=== PATIENT | female | born 1945 | race Caucasian/White ===

== ENCOUNTER 2016-11-30 18:11 | Inpatient (IN) | payer OTHER ==
[~2016-11-30] VITALS: Ht 149.9 cm; Wt 76.2 kg
[~2016-11-30 18:11] MED LIST: APRESOLINE50 M1 PO; Cardura PO; Flexeril PO; Hydrodiuril,Oretic,E PO; LIDODERM 5% P1 PATCH TD; Lopressor PO; Lotensin PO; MOBIC7.5 MG PO; Micro-K,K-Tab,K-Dur, PO; Norvasc PO; PRAVACHOL20 MG PO; Senokot S,Pericolace PO; Tylenol Regular Stre PO; Vicodin,Norco 5/325 PO
[2016-11-30 19:09] LABS: HEMATOCRIT 35.2 % (36.0-46.0); MCH 26.4 PG (29.0-34.0); MCHC 33.2 G/DL (30.0-36.0); MCV 79.5 FL (83-99); MEAN PLAT.VOLUME 8.7 uM^3 (9.5-12.4); PLATELET COUNT 114 K/uL (156-360); RBC DIS.WIDTH-CV 13.9 % (11.8-14.6); RBC DIS.WIDTH-SD 39.9 % (39-53); RED BLOOD COUNT 4.43 M/uL (3.80-5.20)
[2016-11-30 19:12] LABS: ADD MIUA? YES; BILIRUBIN NEGATIVE; BLOOD NEGATIVE; COLOR YELLOW ((YELLOW)); GLUCOSE (STRIP) NEGATIVE; KETONES 5; LEUKOCYTES LARGE; NITRITE NEGATIVE; PROTEIN (STRIP) NEGATIVE; SPECIFIC GRAVITY 1.013 (1.000-1.030)
[2016-11-30 19:18] LABS: CHLORIDE 93 mEq/L (99-109); POTASSIUM 3.8 mEq/L (3.7-5.4); SODIUM 126 mEq/L (136-147)
[2016-11-30 19:20] LABS: GLUCOSE 112 mg/dL (70-99)
[2016-11-30 19:21] LABS: ANION GAP 7 MEQ/L (2-14)
[2016-11-30 19:24] LABS: GFR ESTIMATE (CALCULATED) > 59 mL/min/; UREA NITROGEN (BUN) 13 mg/dL (9-23)
[2016-11-30 19:57] LABS: RED BLOOD CELLS 0-5 /HPF (0-5); WHITE BLOOD CELLS 40-50 /HPF (0-5)
[2016-11-30 19:58] LABS: BACTERIA 1+ /HPF; EPITHELIAL CELLS RARE /HPF; MUCUS NONE SEEN /LPF; UCUL ADDED? NO
[2016-11-30] MEDS ORDERED: HYDROCHLOROTHIA25 MG PO (21:10)
[2016-11-30] MEDS ORDERED: APRESOLINE50 MG PO (21:10)
[2016-11-30] MEDS ORDERED: METOPROLOL TART50 MG PO (21:10)
[2016-11-30] MEDS ORDERED: METHYLDOPA250 MG PO (21:11)
[2016-11-30] MEDS ORDERED: RANITIDINE HCL150 MG PO (21:11)
[2016-11-30] MEDS ORDERED: BENAZEPRIL HCL40 MG PO (21:11)
[2016-11-30] MEDS ORDERED: ONE-A-DAY ESSE1 EAC1 PO (21:11)
[2016-12-01] VITALS (7 sets, daily range): BP systolic 113–211; BP diastolic 62–104
[2016-12-01 06:19] LABS: HEMATOCRIT 35.1 % (36.0-46.0); MCH 26.9 PG (29.0-34.0); MCHC 34.2 G/DL (30.0-36.0); MCV 78.7 FL (83-99); MEAN PLAT.VOLUME 8.7 uM^3 (9.5-12.4); PLATELET COUNT 131 K/uL (156-360); RBC DIS.WIDTH-CV 14.1 % (11.8-14.6); RED BLOOD COUNT 4.46 M/uL (3.80-5.20); WHITE BLOOD COUNT 5.7 K/uL (4.1-10.2)
[2016-12-01 06:40] LABS: ALKALINE PHOSPHATASE 74 IU/L (3-129); ANION GAP 10 MEQ/L (2-14); CHLORIDE 91 MEQ/L (99-109); GFR ESTIMATE (CALCULATED) > 59 mL/min/; GLUCOSE 138 mg/dL (70-99); POTASSIUM 3.6 MEQ/L (3.7-5.4); SAMPLE HEMOLYSIS CHECK 0; SAMPLE ICTERIC CHECK 0; SAMPLE LIPEMIA CHECK 0; SODIUM 125 MEQ/L (136-147); UREA NITROGEN (BUN) 12 mg/dL (9-23)
[2016-12-02 03:36] VITALS: BP 121/64
[2016-12-02 07:10] LABS: ANION GAP 7 MEQ/L (2-14); GFR ESTIMATE (CALCULATED) > 59 mL/min/; SAMPLE HEMOLYSIS CHECK 0; SAMPLE ICTERIC CHECK 0; SAMPLE LIPEMIA CHECK 0; SODIUM 129 MEQ/L (136-147); UREA NITROGEN (BUN) 12 mg/dL (9-23)
[2016-12-02 07:16] LABS: CHLORIDE 101 MEQ/L (99-109); GLUCOSE 93 mg/dL (70-99)
[2016-12-02 07:42] LABS: EOSINOPHIL (%) 1.9 % (0-5); EOSINOPHIL COUNT 0.1 K/uL (0-0.3); HEMATOCRIT 32.3 % (36.0-46.0); IMMATURE GRANULOCYTE (%) 0.5 % (0.0-0.7); INSTRUMENT ABS NEUTROPHIL CT 2.5 K/uL; LYMPHOCYTE COUNT 0.7 K/uL (1.0-2.8); MCH 27.1 PG (29.0-34.0); MCHC 33.1 G/DL (30.0-36.0); MCV 81.8 FL (83-99); MEAN PLAT.VOLUME 9.4 uM^3 (9.5-12.4); MONOCYTE (%) 13.2 % (3-12); MONOCYTE COUNT 0.5 K/uL (0-0.8); NEUTROPHIL (%) 65.9 % (45-76); NEUTROPHIL COUNT 2.5 K/uL (1.8-6.4); PLATELET COUNT 105 K/uL (156-360); RBC DIS.WIDTH-CV 14.4 % (11.8-14.6); RBC DIS.WIDTH-SD 42.3 % (39-53); RED BLOOD COUNT 3.95 M/uL (3.80-5.20); WHITE BLOOD COUNT 3.8 K/uL (4.1-10.2)
[2016-12-02 08:11] VITALS: BP 149/80
[2016-12-02 11:00] VITALS: BP 143/82
[2016-12-02 15:38] VITALS: BP 138/88
[2016-12-02 20:00] VITALS: BP 146/85
[2016-12-03] VITALS (7 sets, daily range): BP systolic 135–170; BP diastolic 61–88
[2016-12-03 06:15] LABS: EOSINOPHIL (%) 2.4 % (0-5); EOSINOPHIL COUNT 0.1 K/uL (0-0.3); HEMATOCRIT 29.9 % (36.0-46.0); IMMATURE GRANULOCYTE (%) 0.9 % (0.0-0.7); INSTRUMENT ABS NEUTROPHIL CT 2.1 K/uL; LYMPHOCYTE COUNT 0.6 K/uL (1.0-2.8); MCHC 33.4 G/DL (30.0-36.0); MCV 80.6 FL (83-99); MEAN PLAT.VOLUME 8.8 uM^3 (9.5-12.4); MONOCYTE (%) 13.1 % (3-12); MONOCYTE COUNT 0.4 K/uL (0-0.8); NEUTROPHIL (%) 65.1 % (45-76); NEUTROPHIL COUNT 2.1 K/uL (1.8-6.4); PLATELET COUNT 109 K/uL (156-360); RBC DIS.WIDTH-CV 14.2 % (11.8-14.6); RBC DIS.WIDTH-SD 41.9 % (39-53); RED BLOOD COUNT 3.71 M/uL (3.80-5.20); WHITE BLOOD COUNT 3.3 K/uL (4.1-10.2)
[2016-12-03 06:43] LABS: ANION GAP 5 MEQ/L (2-14); CHLORIDE 98 MEQ/L (99-109); GFR ESTIMATE (CALCULATED) > 59 mL/min/; GLUCOSE 101 mg/dL (70-99); SAMPLE HEMOLYSIS CHECK 0; SAMPLE ICTERIC CHECK 0; SAMPLE LIPEMIA CHECK 0; SODIUM 126 MEQ/L (136-147); UREA NITROGEN (BUN) 7 mg/dL (9-23)
[2016-12-03 06:47] LABS: POTASSIUM 3.9 MEQ/L (3.7-5.4)
[2016-12-04 06:20] LABS: EOSINOPHIL (%) 1.5 % (0-5); EOSINOPHIL COUNT 0.1 K/uL (0-0.3); HEMATOCRIT 31.4 % (36.0-46.0); IMMATURE GRANULOCYTE (%) 0.8 % (0.0-0.7); INSTRUMENT ABS NEUTROPHIL CT 2.5 K/uL; LYMPHOCYTE COUNT 0.7 K/uL (1.0-2.8); MCH 27.8 PG (29.0-34.0); MCHC 34.4 G/DL (30.0-36.0); MCV 80.9 FL (83-99); MEAN PLAT.VOLUME 8.7 uM^3 (9.5-12.4); MONOCYTE (%) 14.9 % (3-12); MONOCYTE COUNT 0.6 K/uL (0-0.8); NEUTROPHIL (%) 65.1 % (45-76); NEUTROPHIL COUNT 2.5 K/uL (1.8-6.4); PLATELET COUNT 132 K/uL (156-360); RBC DIS.WIDTH-CV 14.6 % (11.8-14.6); RBC DIS.WIDTH-SD 42.9 % (39-53); RED BLOOD COUNT 3.88 M/uL (3.80-5.20); WHITE BLOOD COUNT 3.9 K/uL (4.1-10.2)
[2016-12-04 07:23] VITALS: BP 166/90
[2016-12-04 08:09] LABS: ANION GAP 7 MEQ/L (2-14); CHLORIDE 105 MEQ/L (99-109); GFR ESTIMATE (CALCULATED) > 59 mL/min/; GLUCOSE 111 mg/dL (70-99); SAMPLE HEMOLYSIS CHECK 0; SAMPLE ICTERIC CHECK 0; SAMPLE LIPEMIA CHECK 0; UREA NITROGEN (BUN) 7 mg/dL (9-23)
[2016-12-04 08:11] LABS: SODIUM 133 MEQ/L (136-147)
[2016-12-04 15:19] VITALS: BP 142/70
[2016-12-04 23:58] VITALS: BP 136/63
[2016-12-05 06:33] LABS: EOSINOPHIL COUNT 0.1 K/uL (0-0.3); HEMATOCRIT 31.6 % (36.0-46.0); IMMATURE GRANULOCYTE (%) 0.5 % (0.0-0.7); INSTRUMENT ABS NEUTROPHIL CT 2.6 K/uL; LYMPHOCYTE COUNT 0.8 K/uL (1.0-2.8); MCH 26.1 PG (29.0-34.0); MCHC 32.3 G/DL (30.0-36.0); MCV 80.8 FL (83-99); MEAN PLAT.VOLUME 9.1 uM^3 (9.5-12.4); MONOCYTE (%) 14.1 % (3-12); MONOCYTE COUNT 0.6 K/uL (0-0.8); NEUTROPHIL (%) 64.1 % (45-76); NEUTROPHIL COUNT 2.6 K/uL (1.8-6.4); PLATELET COUNT 139 K/uL (156-360); RBC DIS.WIDTH-CV 14.8 % (11.8-14.6); RBC DIS.WIDTH-SD 43.9 % (39-53); RED BLOOD COUNT 3.91 M/uL (3.80-5.20)
[2016-12-05 06:54] LABS: ANION GAP 7 MEQ/L (2-14); CHLORIDE 102 MEQ/L (99-109); GFR ESTIMATE (CALCULATED) > 59 mL/min/; GLUCOSE 106 mg/dL (70-99); POTASSIUM 4.2 MEQ/L (3.7-5.4); SAMPLE HEMOLYSIS CHECK 0; SAMPLE ICTERIC CHECK 0; SAMPLE LIPEMIA CHECK 0; SODIUM 132 MEQ/L (136-147); UREA NITROGEN (BUN) 9 mg/dL (9-23)
[2016-12-05 08:07] VITALS: BP 148/76
[2016-12-05 15:51] VITALS: BP 159/78
[2016-12-06 00:05] VITALS: BP 126/65
[2016-12-06 08:14] VITALS: BP 128/67
[2016-12-06 08:16] VITALS: BP 128/67
[2016-12-06 08:27] LABS: EOSINOPHIL COUNT 0.1 K/uL (0-0.3); IMMATURE GRANULOCYTE (%) 0.5 % (0.0-0.7); LYMPHOCYTE COUNT 0.6 K/uL (1.0-2.8); MCH 27.2 PG (29.0-34.0); MCHC 33.5 G/DL (30.0-36.0); MCV 81.2 FL (83-99); MEAN PLAT.VOLUME 9.2 uM^3 (9.5-12.4); MONOCYTE (%) 12.8 % (3-12); MONOCYTE COUNT 0.6 K/uL (0-0.8); NEUTROPHIL (%) 68.3 % (45-76); PLATELET COUNT 155 K/uL (156-360); RBC DIS.WIDTH-CV 15.1 % (11.8-14.6); RBC DIS.WIDTH-SD 43.9 % (39-53); RED BLOOD COUNT 3.82 M/uL (3.80-5.20); WHITE BLOOD COUNT 4.4 K/uL (4.1-10.2)
[2016-12-06 08:51] LABS: ANION GAP 9 MEQ/L (2-14); CHLORIDE 98 MEQ/L (99-109); GFR ESTIMATE (CALCULATED) > 59 mL/min/; GLUCOSE 114 mg/dL (70-99); POTASSIUM 4.1 MEQ/L (3.7-5.4); SAMPLE HEMOLYSIS CHECK 0; SAMPLE ICTERIC CHECK 0; SAMPLE LIPEMIA CHECK 0; SODIUM 131 MEQ/L (136-147); UREA NITROGEN (BUN) 10 mg/dL (9-23)
[2016-12-06] MEDS ORDERED: FUROSEMIDE20 MG PO (11:47)
[2016-12-06] MEDS ORDERED: SODIUM CHLORIDE1 G1 PO (11:47)
[2016-12-06] MEDS ORDERED: BACTRIM,SEPT1 TABLET PO (11:50)
[2016-12-06] MEDS ORDERED: APRESOLINE50 MG PO (11:55)
[2016-12-06] MEDS ORDERED: AMLODIPINE BESYL5 MG PO (11:55)
[2016-12-06 12:00] VITALS: BP 143/75
== END 2016-12-06 16:09 | disposition home health service (06) | DRG 644 ==
LOC: EME 18:11 → EDOF 23:14 → 5SOUTH 23:14 → EDOF 12-01 00:46 → 5SOUTH 12-01 00:48
PROVIDERS: Emergency Medicine; Internal Medicine; Internal Medicine Nephrology
DX: E22.2 Syndrome of inappropriate secretion of antidiuretic hormone (principal); C25.9 Malignant neoplasm of pancreas, unspecified; C78.00 Secondary malignant neoplasm of unspecified lung; N39.0 Urinary tract infection, site not specified; B96.20 Unspecified Escherichia coli [E. coli] as the cause of diseases classified elsewhere; I16.0 Hypertensive urgency; I10 Essential (primary) hypertension; I80.8 Phlebitis and thrombophlebitis of other sites; R18.8 Other ascites; I25.10 Atherosclerotic heart disease of native coronary artery without angina pectoris; D53.9 Nutritional anemia, unspecified; J45.909 Unspecified asthma, uncomplicated; K21.9 Gastro-esophageal reflux disease without esophagitis; I65.29 Occlusion and stenosis of unspecified carotid artery; K57.90 Diverticulosis of intestine, part unspecified, without perforation or abscess without bleeding; M54.9 Dorsalgia, unspecified; M19.90 Unspecified osteoarthritis, unspecified site; Z85.07 Personal history of malignant neoplasm of pancreas; Z86.73 Personal history of transient ischemic attack (TIA), and cerebral infarction without residual deficits; Z90.710 Acquired absence of both cervix and uterus
CPT/HCPCS: 36415; 74176; 80048; 80053; 81003; 82533 91; 83605; 83930; 83935; 84300; 84443; 85025; 85027; 85610; 85730; 87040; 87077; 87086; 87186; 93971; 99202; 99281; 99285; J0360; J0696; J1644; J2405; J7030; J7050; S0028

== ENCOUNTER → 2016-12-13 | Outpatient (CLI) | payer OTHER ==
[~2016-12-13] VITALS: Ht 151.6 cm; Wt 68.0 kg
[~2016-12-13] MED LIST changes: +AMLODIPINE BESYL5 MG PO; +APRESOLINE50 MG PO; +BACTRIM,SEPT1 TABLET PO; +BENAZEPRIL HCL40 MG PO; +FUROSEMIDE20 MG PO; +HYDROCHLOROTHIA25 MG PO; +METHYLDOPA250 MG PO; +METOPROLOL TART50 MG PO; +ONE-A-DAY ESSE1 EAC1 PO; +RANITIDINE HCL150 MG PO; +SODIUM CHLORIDE1 G1 PO
== END | disposition home or self-care (01) ==
LOC: OPR 08:38 → EDSTATUS 09:00
DX: C78.02 Secondary malignant neoplasm of left lung (principal); C25.9 Malignant neoplasm of pancreas, unspecified; I10 Essential (primary) hypertension; J45.909 Unspecified asthma, uncomplicated; K21.9 Gastro-esophageal reflux disease without esophagitis; G89.3 Neoplasm related pain (acute) (chronic)
CPT/HCPCS: 71010; 77012; 88305; 88341 TC; 88342 TC; J3010

== ENCOUNTER 2016-12-26 18:52 | Inpatient (IN) | payer OTHER ==
[~2016-12-26] VITALS: Ht 149.9 cm; Wt 68.7 kg
[2016-12-26 19:47] LABS: CHLORIDE 89 mEq/L (99-109); POTASSIUM 3.5 mEq/L (3.7-5.4); SODIUM 123 mEq/L (136-147)
[2016-12-26 19:49] LABS: MCH 26.1 PG (29.0-34.0); MCHC 33.8 G/DL (30.0-36.0); MCV 77.3 FL (83-99); MEAN PLAT.VOLUME 8.7 uM^3 (9.5-12.4); PLATELET COUNT 171 K/uL (156-360); RBC DIS.WIDTH-CV 14.5 % (11.8-14.6); RBC DIS.WIDTH-SD 40.6 % (39-53); WHITE BLOOD COUNT 5.1 K/uL (4.1-10.2)
[2016-12-26 19:50] LABS: GLUCOSE 108 mg/dL (70-99)
[2016-12-26 19:51] LABS: ANION GAP 13 MEQ/L (2-14)
[2016-12-26 19:52] LABS: TOTAL BILIRUBIN 1.3 mg/dL (0.0-1.0)
[2016-12-26 19:53] LABS: ALKALINE PHOSPHATASE 70 IU/L (3-129); GFR ESTIMATE (CALCULATED) > 59 mL/min/
[2016-12-26 19:54] LABS: UREA NITROGEN (BUN) 14 mg/dL (9-23)
[2016-12-26 20:40] LABS: ADD MIUA? YES; BILIRUBIN NEGATIVE; BLOOD NEGATIVE; COLOR YELLOW ((YELLOW)); GLUCOSE (STRIP) NEGATIVE; KETONES 5; LEUKOCYTES SMALL; NITRITE POSITIVE; PROTEIN (STRIP) NEGATIVE; SPECIFIC GRAVITY 1.009 (1.000-1.030); UROBILINOGEN 0.2 MG/DL (0.2-1.0)
[2016-12-26 21:08] LABS: EPITHELIAL CELLS RARE /HPF; MUCUS NONE SEEN /LPF; RED BLOOD CELLS 0-5 /HPF (0-5)
[2016-12-26 21:09] LABS: BACTERIA 1+ /HPF; CASTS NONE SEEN /LPF; CRYSTALS NONE SEEN; UCUL ADDED? NO
[2016-12-26] MEDS ORDERED: APRESOLINE50 MG PO (22:25)
[2016-12-26] MEDS ORDERED: NORVASC5 MG PO (22:27)
[2016-12-26] MEDS ORDERED: PROMETHAZINE12.5 M1 PO (22:29)
[2016-12-26 23:44] VITALS: BP 187/82
[2016-12-27 03:47] VITALS: BP 128/65
[2016-12-27 06:28] LABS: ALKALINE PHOSPHATASE 53 IU/L (3-129); ANION GAP 7 MEQ/L (2-14); CHLORIDE 98 MEQ/L (99-109); GFR ESTIMATE (CALCULATED) > 59 mL/min/; GLUCOSE 95 mg/dL (70-99); MAGNESIUM 1.7 mg/dl (1.3-2.7); POTASSIUM 3.7 MEQ/L (3.7-5.4); SAMPLE HEMOLYSIS CHECK 0; SAMPLE ICTERIC CHECK 0; SAMPLE LIPEMIA CHECK 0; SODIUM 129 MEQ/L (136-147); TOTAL BILIRUBIN 0.8 MG/DL (0.0-1.0); UREA NITROGEN (BUN) 10 mg/dL (9-23)
[2016-12-27 07:22] VITALS: BP 115/61
[2016-12-27 11:10] VITALS: BP 134/66
[2016-12-27 15:08] VITALS: BP 136/60
[2016-12-27 19:30] VITALS: BP 120/58
[2016-12-27 23:28] VITALS: BP 129/60
[2016-12-28 03:56] VITALS: BP 145/72
[2016-12-28 08:12] VITALS: BP 117/79
[2016-12-28 10:20] LABS: ANION GAP 7 MEQ/L (2-14); CHLORIDE 100 MEQ/L (99-109); POTASSIUM 3.7 MEQ/L (3.7-5.4); SAMPLE HEMOLYSIS CHECK 0; SAMPLE ICTERIC CHECK 0; SAMPLE LIPEMIA CHECK 0; SODIUM 130 MEQ/L (136-147)
[2016-12-28 10:25] LABS: GFR ESTIMATE (CALCULATED) > 59 mL/min/; GLUCOSE 137 mg/dL (70-99); UREA NITROGEN (BUN) 10 mg/dL (9-23)
[2016-12-28 12:13] VITALS: BP 146/65
[2016-12-28] MEDS ORDERED: PROMETHAZINE12.5 M1 PO (14:31)
[2016-12-28] MEDS ORDERED: BACTRIM,SEPT1 TABLET PO (14:32)
== END 2016-12-28 16:45 | disposition home health service (06) | DRG 644 ==
LOC: EME 18:52 → EDOF 21:59 → 5SOUTH 21:59 → ENRESERV 22:10 → 5SOUTH 23:31
PROVIDERS: Internal Medicine; Nurse Practitioner Family; Physician Assistant Medical
DX: E22.2 Syndrome of inappropriate secretion of antidiuretic hormone (principal); C78.00 Secondary malignant neoplasm of unspecified lung; C25.9 Malignant neoplasm of pancreas, unspecified; N30.00 Acute cystitis without hematuria; B96.20 Unspecified Escherichia coli [E. coli] as the cause of diseases classified elsewhere; I10 Essential (primary) hypertension; K21.9 Gastro-esophageal reflux disease without esophagitis; Z91.19 Patient's noncompliance with other medical treatment and regimen; I25.2 Old myocardial infarction; E86.0 Dehydration; Z86.73 Personal history of transient ischemic attack (TIA), and cerebral infarction without residual deficits; I25.10 Atherosclerotic heart disease of native coronary artery without angina pectoris
CPT/HCPCS: 74177; 80048; 80053; 81003; 83735; 84100; 85027; 99281; 99285; J0696; J1644; J2405; J2765; J7030; J7050; S0028

== ENCOUNTER 2017-01-14 10:49 | Emergency (ER) | payer OTHER ==
[~2017-01-14] VITALS: Ht 149.9 cm; Wt 78.0 kg
[~2017-01-14 10:49] MED LIST changes: +NORVASC5 MG PO; +PROMETHAZINE12.5 M1 PO
[2017-01-14 12:40] LABS: EOSINOPHIL (%) 1.1 % (0-5); EOSINOPHIL COUNT 0.1 K/uL (0-0.3); IMMATURE GRANULOCYTE (%) 0.7 % (0.0-0.7); LYMPHOCYTE COUNT 0.4 K/uL (1.0-2.8); MCH 26.2 PG (29.0-34.0); MCV 79.4 FL (83-99); MONOCYTE (%) 1.1 % (3-12); MONOCYTE COUNT 0.1 K/uL (0-0.8); NEUTROPHIL (%) 88.4 % (45-76); RBC DIS.WIDTH-CV 14.7 % (11.8-14.6); RBC DIS.WIDTH-SD 42.7 % (39-53); RED BLOOD COUNT 3.78 M/uL (3.80-5.20); WHITE BLOOD COUNT 4.6 K/uL (4.1-10.2)
[2017-01-14 12:53] LABS: CHLORIDE 95 mEq/L (99-109); POTASSIUM 3.4 mEq/L (3.7-5.4); SODIUM 128 mEq/L (136-147)
[2017-01-14 12:55] LABS: ADD MIUA? NO; BILIRUBIN NEGATIVE; BLOOD NEGATIVE; COLOR YELLOW ((YELLOW)); GLUCOSE (STRIP) NEGATIVE; KETONES NEGATIVE; LEUKOCYTES NEGATIVE; NITRITE NEGATIVE; PROTEIN (STRIP) 30; SPECIFIC GRAVITY 1.015 (1.000-1.030); UCUL ADDED? NO
[2017-01-14 12:55] LABS: GLUCOSE 120 mg/dL (70-99)
[2017-01-14 12:56] LABS: ANION GAP 7 MEQ/L (2-14)
[2017-01-14 12:57] LABS: TOTAL BILIRUBIN 1.5 mg/dL (0.0-1.0)
[2017-01-14 12:58] LABS: ALKALINE PHOSPHATASE 70 IU/L (3-129)
[2017-01-14 12:58] LABS: TROP-I INTERPRETATION NEGATIVE; TROPONIN-I 0.01 ng/mL (0.0-0.30)
[2017-01-14 12:59] LABS: GFR ESTIMATE (CALCULATED) > 59 mL/min/
[2017-01-14 13:00] LABS: UREA NITROGEN (BUN) 15 mg/dL (9-23)
[2017-01-14 13:02] LABS: LIPASE 6 U/L (1.0-51.0)
[2017-01-14 13:14] LABS: MEAN PLAT.VOLUME 9.8 uM^3 (9.5-12.4); PLAT.SUFFICIENCY DECREASED; PLATELET COUNT 101 K/uL (156-360)
[2017-01-14 22:05] VITALS: BP 152/68
== END 2017-01-14 22:21 | disposition home or self-care (01) ==
LOC: EME 10:49
PROVIDERS: Emergency Medicine
DX: C25.9 Malignant neoplasm of pancreas, unspecified (principal); C78.00 Secondary malignant neoplasm of unspecified lung; R11.2 Nausea with vomiting, unspecified; R50.9 Fever, unspecified; R18.8 Other ascites; J90 Pleural effusion, not elsewhere classified; R05 Cough; I10 Essential (primary) hypertension; Z90.49 Acquired absence of other specified parts of digestive tract
CPT/HCPCS: 71020; 74177; 80053; 81003; 83605; 83690; 84484; 85025; 87040; 93005; 99281; 99285; J2405; J2765; J7030

== ENCOUNTER 2017-03-13 16:54 | Inpatient (IN) | payer OTHER ==
[~2017-03-13] VITALS: Ht 149.9 cm; Wt 69.0 kg
[~2017-03-13 16:54] MED LIST changes: +NYSTATIN100000 UN1 PO
[2017-03-13 18:09] LABS: CHLORIDE 101 mEq/L (99-109); POTASSIUM 4.5 mEq/L (3.7-5.4); SODIUM 133 mEq/L (136-147)
[2017-03-13 18:11] LABS: GLUCOSE 95 mg/dL (70-99)
[2017-03-13 18:12] LABS: ANION GAP 8 MEQ/L (2-14)
[2017-03-13 18:13] LABS: TOTAL BILIRUBIN 1.5 mg/dL (0.0-1.0)
[2017-03-13 18:15] LABS: ALKALINE PHOSPHATASE 102 IU/L (3-129); GFR ESTIMATE (CALCULATED) > 59 mL/min/
[2017-03-13 18:16] LABS: UREA NITROGEN (BUN) 26 mg/dL (9-23)
[2017-03-13 18:20] LABS: TROP-I INTERPRETATION NEGATIVE; TROPONIN-I 0.04 ng/mL (0.0-0.30)
[2017-03-13 18:42] LABS: HEMATOCRIT 20.5 % (36.0-46.0); MCH 27.3 PG (29.0-34.0); MCHC 33.7 G/DL (30.0-36.0); MEAN PLAT.VOLUME 8.6 uM^3 (9.5-12.4); RBC DIS.WIDTH-CV 20.7 % (11.8-14.6); RBC DIS.WIDTH-SD 55.9 % (39-53); RED BLOOD COUNT 2.53 M/uL (3.80-5.20)
[2017-03-13 18:43] LABS: PLATELET COUNT 80 K/uL (156-360); WHITE BLOOD COUNT 0.9 K/uL (4.1-10.2)
[2017-03-13 19:02] LABS: PLAT.SUFFICIENCY DECREASED
[2017-03-13 19:06] LABS: ABS NEUTROPHIL COUNT 0.6; ANISOCYTOSIS 1+; ATYPICAL LYMPHOCYTE 5.9 %; BAND NEUTROPHILS 1.4 % (0-8.0); BURR CELLS 2+; EOSINOPHIL ABS CT 0; EOSINOPHILS 0.9 % (0-5.0); HYPOCHROMASIA 1+; LYMPHOCYTES 22.5 % (15.0-45.0); MACROCYTES 1+; OVALOCYTES 1+; POIKILOCYTOSIS 2+; SCHISTOCYTES 1+
[2017-03-13] MEDS ORDERED: LASIX20 MG PO (20:44)
[2017-03-13] MEDS ORDERED: K-DUR20 MEQ PO (20:44)
[2017-03-13] MEDS ORDERED: REGLAN10 MG PO (20:45)
[2017-03-13] MEDS ORDERED: ZUPLENZ4 MG PO (20:45)
[2017-03-13] MEDS ORDERED: PRILOSEC20 MG PO (20:46)
[2017-03-13 21:08] VITALS: BP 112/67
[2017-03-13 21:15] VITALS: BP 112/66
[2017-03-13 21:30] VITALS: BP 104/67
[2017-03-13 22:45] VITALS: BP 125/79
[2017-03-14] VITALS (10 sets, daily range): BP systolic 118–145; BP diastolic 70–83
[2017-03-14 06:50] LABS: HEMATOCRIT 28.4 % (36.0-46.0); MCH 26.4 PG (29.0-34.0); MCV 82.3 FL (83-99); MEAN PLAT.VOLUME 8.3 uM^3 (9.5-12.4); PLATELET COUNT 74 K/uL (156-360); RBC DIS.WIDTH-CV 19.1 % (11.8-14.6); RBC DIS.WIDTH-SD 52.7 % (39-53)
[2017-03-14 06:59] LABS: RED BLOOD COUNT 3.45 M/uL (3.80-5.20)
[2017-03-14 07:10] LABS: ANION GAP 5 MEQ/L (2-14); CHLORIDE 101 MEQ/L (99-109); GFR ESTIMATE (CALCULATED) > 59 mL/min/; GLUCOSE 90 mg/dL (70-99); POTASSIUM 4.4 MEQ/L (3.7-5.4); SAMPLE HEMOLYSIS CHECK 0; SAMPLE ICTERIC CHECK 0; SAMPLE LIPEMIA CHECK 0; SODIUM 131 MEQ/L (136-147); UREA NITROGEN (BUN) 24 mg/dL (9-23)
[2017-03-14 12:58] LABS: HEMATOCRIT 29.7 % (36.0-46.0); MCV 80.9 FL (83-99)
[2017-03-15 06:53] LABS: ANION GAP 9 MEQ/L (2-14); CHLORIDE 102 MEQ/L (99-109); GFR ESTIMATE (CALCULATED) > 59 mL/min/; GLUCOSE 88 mg/dL (70-99); SAMPLE HEMOLYSIS CHECK 0; SAMPLE ICTERIC CHECK 0; SAMPLE LIPEMIA CHECK 0; SODIUM 135 MEQ/L (136-147); UREA NITROGEN (BUN) 19 mg/dL (9-23)
[2017-03-15 06:55] LABS: HEMATOCRIT 29.7 % (36.0-46.0); MCH 26.9 PG (29.0-34.0); MCHC 32.7 G/DL (30.0-36.0); MCV 82.3 FL (83-99); MEAN PLAT.VOLUME 8.8 uM^3 (9.5-12.4); PLATELET COUNT 57 K/uL (156-360); RBC DIS.WIDTH-CV 19.5 % (11.8-14.6); RBC DIS.WIDTH-SD 53.6 % (39-53); RED BLOOD COUNT 3.61 M/uL (3.80-5.20); WHITE BLOOD COUNT 2.5 K/uL (4.1-10.2)
[2017-03-15 08:04] VITALS: BP 120/75
[2017-03-15 11:27] VITALS: BP 124/73
[2017-03-15 15:57] VITALS: BP 117/71
[2017-03-16 00:01] VITALS: BP 126/76
[2017-03-16 07:50] VITALS: BP 106/65
[2017-03-16 07:52] VITALS: BP 134/69
[2017-03-16 08:55] LABS: MCH 26.8 PG (29.0-34.0); MCHC 32.1 G/DL (30.0-36.0); MCV 83.5 FL (83-99); MEAN PLAT.VOLUME 8.8 uM^3 (9.5-12.4); NRBC (%) 0.4 /100 WBC (0-0); PLATELET COUNT 58 K/uL (156-360); RBC DIS.WIDTH-SD 55.8 % (39-53); RED BLOOD COUNT 4.07 M/uL (3.80-5.20); WHITE BLOOD COUNT 5.3 K/uL (4.1-10.2)
[2017-03-16 11:11] VITALS: BP 136/74
[2017-03-16 12:45] LABS: POINT-OF-CARE METER ID UU14188625
[2017-03-17 00:21] VITALS: BP 106/65
[2017-03-17 06:53] LABS: HEMATOCRIT 32.6 % (36.0-46.0); MCH 26.2 PG (29.0-34.0); MCHC 31.3 G/DL (30.0-36.0); MCV 83.8 FL (83-99); MEAN PLAT.VOLUME 10.2 uM^3 (9.5-12.4); NRBC (%) 0.4 /100 WBC (0-0); PLATELET COUNT 67 K/uL (156-360); RBC DIS.WIDTH-CV 20.1 % (11.8-14.6); RBC DIS.WIDTH-SD 57.1 % (39-53); RED BLOOD COUNT 3.89 M/uL (3.80-5.20); WHITE BLOOD COUNT 5.3 K/uL (4.1-10.2)
[2017-03-17 07:02] VITALS: BP 106/65
[2017-03-17 07:17] LABS: ANION GAP 10 MEQ/L (2-14); CHLORIDE 102 MEQ/L (99-109); GFR ESTIMATE (CALCULATED) 58 mL/min/; GLUCOSE 85 mg/dL (70-99); POTASSIUM 3.8 MEQ/L (3.7-5.4); SAMPLE HEMOLYSIS CHECK 0; SAMPLE ICTERIC CHECK 0; SAMPLE LIPEMIA CHECK 0; SODIUM 136 MEQ/L (136-147); UREA NITROGEN (BUN) 21 mg/dL (9-23)
[2017-03-17 15:00] VITALS: BP 130/78
[2017-03-17 23:35] VITALS: BP 125/66
[2017-03-18 07:07] VITALS: BP 131/72
[2017-03-18 14:30] LABS: Heparin Induced Plt Ab Negative (Negative)
[2017-03-18 15:05] VITALS: BP 135/69
[2017-03-19 00:50] VITALS: BP 113/69
[2017-03-19 08:00] VITALS: BP 120/72
[2017-03-19 09:53] LABS: UFH SRA Result Negative (Negative)
[2017-03-19 15:54] VITALS: BP 115/78
[2017-03-19 23:41] VITALS: BP 102/67
[2017-03-20 07:38] VITALS: BP 110/63
[2017-03-20 13:18] LABS: HEMATOCRIT 31.9 % (36.0-46.0); MCH 27.7 PG (29.0-34.0); MCHC 32.9 G/DL (30.0-36.0); MCV 84.2 FL (83-99); MEAN PLAT.VOLUME 8.9 uM^3 (9.5-12.4); NRBC (%) 0.2 /100 WBC (0-0); RBC DIS.WIDTH-CV 21.1 % (11.8-14.6); RBC DIS.WIDTH-SD 61.5 % (39-53); RED BLOOD COUNT 3.79 M/uL (3.80-5.20); WHITE BLOOD COUNT 11.6 K/uL (4.1-10.2)
[2017-03-20 13:20] LABS: EOSINOPHIL (%) 0.2 % (0-5); IMMATURE GRANULOCYTE (%) 2.8 % (0.0-0.7); IMMATURE GRANULOCYTE COUNT 0.3 K/uL; INSTRUMENT ABS NEUTROPHIL CT 9.5 K/uL; LYMPHOCYTE COUNT 0.7 K/uL (1.0-2.8); MONOCYTE (%) 8.4 % (3-12); NEUTROPHIL (%) 82.1 % (45-76); NEUTROPHIL COUNT 9.5 K/uL (1.8-6.4); PLATELET COUNT 201 K/uL (156-360)
[2017-03-20 13:40] LABS: ALKALINE PHOSPHATASE 139 IU/L (3-129); ANION GAP 12 MEQ/L (2-14); CHLORIDE 106 MEQ/L (99-109); GFR ESTIMATE (CALCULATED) 47 mL/min/; GLUCOSE 85 mg/dL (70-99); POTASSIUM 3.4 MEQ/L (3.7-5.4); SAMPLE HEMOLYSIS CHECK 0; SAMPLE ICTERIC CHECK 0; SAMPLE LIPEMIA CHECK 0; SODIUM 141 MEQ/L (136-147); TOTAL BILIRUBIN 1.5 MG/DL (0.0-1.0); UREA NITROGEN (BUN) 26 mg/dL (9-23)
[2017-03-20 16:07] VITALS: BP 115/69
[2017-03-20 23:34] VITALS: BP 107/64
[2017-03-21 07:11] VITALS: BP 123/70
[2017-03-21 15:10] VITALS: BP 112/62
[2017-03-21 23:57] VITALS: BP 102/60
[2017-03-22 07:56] VITALS: BP 110/62
[2017-03-22] MEDS ORDERED: CIPROFLOXACIN500 M1 PO (09:44)
[2017-03-22] MEDS ORDERED: DOCUSATE SODIU100 MG PO (09:45)
[2017-03-22] MEDS ORDERED: POLYETHYLENE GL17 GM PO (09:46)
[2017-03-22] MEDS ORDERED: TRAMADOL HCL50 MG PO (09:47)
[2017-03-22] MEDS ORDERED: K-DUR20 MEQ PO (09:47)
[2017-03-22] MEDS ORDERED: MORPHINE SULFAT15 MG PO (09:47)
[2017-03-22 10:58] VITALS: BP 104/56
== END 2017-03-22 15:03 | DRG 809 ==
LOC: EME 16:54 → EDOF 22:36 → 5SOUTH 22:36 → ENRESERV 22:37 → 5SOUTH 03-14 00:08
PROVIDERS: Emergency Medicine; Internal Medicine; Internal Medicine Medical Oncology; Physician Assistant Medical
PROC: 30233N1 Transfusion of Nonautologous Red Blood Cells into Peripheral Vein, Percutaneous Approach (ICD-10-PCS; principal; 2017-03-13)
DX: D61.810 Antineoplastic chemotherapy induced pancytopenia (principal); T45.1X5A Adverse effect of antineoplastic and immunosuppressive drugs, initial encounter; M54.9 Dorsalgia, unspecified; C78.00 Secondary malignant neoplasm of unspecified lung; G89.29 Other chronic pain; I25.10 Atherosclerotic heart disease of native coronary artery without angina pectoris; C25.9 Malignant neoplasm of pancreas, unspecified; R18.0 Malignant ascites; K57.32 Diverticulitis of large intestine without perforation or abscess without bleeding; K59.00 Constipation, unspecified; C78.6 Secondary malignant neoplasm of retroperitoneum and peritoneum; K21.9 Gastro-esophageal reflux disease without esophagitis; I10 Essential (primary) hypertension; R47.02 Dysphasia; R13.10 Dysphagia, unspecified; E22.2 Syndrome of inappropriate secretion of antidiuretic hormone; D50.0 Iron deficiency anemia secondary to blood loss (chronic); R26.2 Difficulty in walking, not elsewhere classified; Z90.710 Acquired absence of both cervix and uterus; Z90.49 Acquired absence of other specified parts of digestive tract; Z86.73 Personal history of transient ischemic attack (TIA), and cerebral infarction without residual deficits; Z82.49 Family history of ischemic heart disease and other diseases of the circulatory system; Z68.30 Body mass index [BMI] 30.0-30.9, adult; D70.9 Neutropenia, unspecified; E87.6 Hypokalemia; Z66 Do not resuscitate; Z51.5 Encounter for palliative care; Z79.899 Other long term (current) drug therapy
CPT/HCPCS: 36415; 71010; 71020; 74000; 74177; 80048; 80053; 82948; 84484; 85014; 85018; 85025; 85027; 86022 90; 86850; 86900; 86901; 86920; 93005; 94799; 97530 GP; 99281; 99285; J1650; J2270; J2405; J2543; J7050; P9016; Q0169

== ENCOUNTER 2017-03-27 03:29 | Inpatient (IN) | payer OTHER ==
[~2017-03-27] VITALS: Ht 160 cm; Wt 68.7 kg
[~2017-03-27 03:29] MED LIST changes: +CIPROFLOXACIN500 M1 PO; +DOCUSATE SODIU100 MG PO; +K-DUR20 MEQ PO; +LASIX20 MG PO; +MORPHINE SULFAT15 MG PO; +POLYETHYLENE GL17 GM PO; +PRILOSEC20 MG PO; +REGLAN10 MG PO; +TRAMADOL HCL50 MG PO; +ZUPLENZ4 MG PO
[2017-03-27 04:08] LABS: HEMATOCRIT 29.6 % (36.0-46.0); MCHC 32.4 G/DL (30.0-36.0); MCV 83.1 FL (83-99); MEAN PLAT.VOLUME 8.8 uM^3 (9.5-12.4); NRBC (%) 0.6 /100 WBC (0-0); PLATELET COUNT 241 K/uL (156-360); RBC DIS.WIDTH-CV 22.7 % (11.8-14.6); RED BLOOD COUNT 3.56 M/uL (3.80-5.20); WHITE BLOOD COUNT 8.6 K/uL (4.1-10.2)
[2017-03-27 04:19] LABS: CHLORIDE 101 mEq/L (99-109); POTASSIUM 4.3 mEq/L (3.7-5.4); SODIUM 141 mEq/L (136-147)
[2017-03-27 04:21] LABS: GLUCOSE 103 mg/dL (70-99)
[2017-03-27 04:22] LABS: ANION GAP 21 MEQ/L (2-14)
[2017-03-27 04:23] LABS: TOTAL BILIRUBIN 1.1 mg/dL (0.0-1.0)
[2017-03-27 04:24] LABS: ALKALINE PHOSPHATASE 150 IU/L (3-129)
[2017-03-27 04:26] LABS: UREA NITROGEN (BUN) 75 mg/dL (9-23)
[2017-03-27 04:29] LABS: TROP-I INTERPRETATION NEGATIVE; TROPONIN-I 0.03 ng/mL (0.0-0.30)
[2017-03-27 04:34] LABS: GFR ESTIMATE (CALCULATED) 7 mL/min/
[2017-03-27 08:15] VITALS: BP 78/58
[2017-03-27] MEDS ORDERED: Ranitidine IV (10:34)
[2017-03-27] MEDS ORDERED: MORPHINE SULFAT15 MG PO (10:36)
[2017-03-27] MEDS ORDERED: TRAMADOL HCL50 MG PO (10:40)
[2017-03-27] MEDS ORDERED: TUMS500 MG PO (10:40)
[2017-03-27 13:25] VITALS: BP 00/00
== END 2017-03-27 16:45 | DRG 193 ==
LOC: EME → EDBD 03:29 → EME 03:29 → EDOF 05:42 → ENRESERV 05:44 → 5EAST 07:22
PROVIDERS: Emergency Medicine
DX: J18.9 Pneumonia, unspecified organism (principal); J96.01 Acute respiratory failure with hypoxia; C78.00 Secondary malignant neoplasm of unspecified lung; C25.9 Malignant neoplasm of pancreas, unspecified; R64 Cachexia; N17.9 Acute kidney failure, unspecified; Z51.5 Encounter for palliative care; E86.1 Hypovolemia; Z66 Do not resuscitate; K57.90 Diverticulosis of intestine, part unspecified, without perforation or abscess without bleeding; K21.9 Gastro-esophageal reflux disease without esophagitis; I25.10 Atherosclerotic heart disease of native coronary artery without angina pectoris; J45.909 Unspecified asthma, uncomplicated; I11.0 Hypertensive heart disease with heart failure; G89.29 Other chronic pain; D64.9 Anemia, unspecified; I50.9 Heart failure, unspecified; Z80.0 Family history of malignant neoplasm of digestive organs; Z86.73 Personal history of transient ischemic attack (TIA), and cerebral infarction without residual deficits; Z90.710 Acquired absence of both cervix and uterus; Z86.72 Personal history of thrombophlebitis; Z82.0 Family history of epilepsy and other diseases of the nervous system
CPT/HCPCS: 71010; 80053; 81003; 83690; 83880; 84484; 85027; 93005; 94640; 94760; 94799; 99202; 99281; 99285; J1940; J2270; J2405; J2765; J7040